=== PATIENT | male | born 1985 | race Caucasian/White ===

== ENCOUNTER 2018-03-23 14:25 | Observation (INO) ==
[2018-03-23] MEDS ORDERED: NORMAL SALINE 500 ML IV ONE (14:34)
--- NOTE | 2018-03-23 15:27 | ERNOTE ---
Medical Problem HPI - Narrative Date of Service: 03/23/18 - Arrived by ambulance having supposedly taken an overdose of lorazepam. Also used a serated knive to superficially cut his chest, neck, and face. Is awake but with garbled speech. - General Chief Complaint: Drug Overdose Time Seen by Provider: 03/23/18 17:15 Source: patient, family Exam Limitations: clinical condition - Immun/Allergies/Home Medications Immunizations: IMMUNIZATION HX Immunizations Up to Date Yes Allergies/Adverse Reactions: Allergies No Known Allergies Allergy (Verified 03/24/18 17:14) Home Medications: HOME MEDICATIONS RX: Benztropine Mesylate 1 mg PO BID 03/23/18 [Last Taken Unknown] RX: LORazepam [Ativan] 0.5 mg PO BID PRN 03/23/18 [Last Taken Unknown] RX: Paliperidone Palmitate [Invega Sustenna] 156 mg IM Q28D 03/23/18 [Last Taken Unknown] - History of Present History Narrative: See above Date (Duration): 03/23/18 Time (Timing): 12:20 Timing: getting worse, intermittent Severity: moderate Modifying Factors - (Improves): Present: other - nothing Modifying Factors - (Worsens): Present: other - nothing Review of Systems - Narrative Narrative: unreliable information from patient - Review of Systems Constitutional: Present: no symptoms reported EYE: Present: no symptoms reported ENT: Present: no symptoms reported Respiratory: Present: no symptoms reported Cardiology: Present: no symptoms reported Gastrointestinal/Abdominal: Present: no symptoms reported Genitourinary: Present: no symptoms reported Musculoskeletal: Present: no symptoms reported Skin: Present: other - multiple superficial lacerations on trunk (chest), neck, face Neurological: Present: anxiety, emotional problems, other - self harm by serrated knife Endocrine: Present: no symptoms reported Hematologic/Lymphatic: Present: no symptoms reported Psych: Present: emotional problems - Discharge recently (5 days ago from [facility] in [facility]) All Other Systems: All systems neg except as marked Medical History (Last Reviewed 03/24/18 @ 17:14 by Vishnu Stapleton RN) Bilateral femoral fractures Onset Date: ~1990 Chlamydia Gangrene Onset Date: ~1990 Kidney calculi Schizo affective schizophrenia Surgical History: Surgical History (Last Reviewed 03/24/18 @ 17:14 by Vishnu Stapleton RN) H/O lithotripsy Family History: Family History (Last Reviewed 03/24/18 @ 17:14 by Vishnu Stapleton RN) Other Family history unknown Social History: Preferred Language Lithuanian Smoking Status Current every day smoker Have you smoked in the past 12 Yes months Do you dip or chew tobacco No Psych History No pertinent hx Alcohol Use heavy Drug Use benzodiazepine,cocaine,marijuana,meth,other No Social History Section defined Physical Exam - Physical Exam General Appearance: Present: moderate distress, other - slurred speech, multiple superficial lacerations on chest, arms, neck. Very agitated and aggressive and uncooperativve. Cursing and threatening to kala everyone in sight. Head Exam: Present: normal inspection, other - few superficial lacerations on face Eye Exam: Normal inspection: bilateral, PERRL: bilateral, EOMI: bilateral Ears, Nose, Throat: Present: normal ENT inspection Neck: Present: nontender, full range of motion, other - few superficial lacerations on neck Respiratory: Present: no respiratory distress, normal breath sounds, no accessory muscle use, chest nontender - except where superficial lacerations are located Cardiovascular/Chest: Present: regular rate, rhythm, no murmur, normal peripheral pulses Peripheral Pulses: N=norm/S=strong/W=weak/B=bound/A=absent: Carotid (R): Normal, Carotid (L): Normal, Radial (R): Normal Gastrointestinal/Abdominal: Present: normal bowel sounds, nontender, nondistended, soft Rectal Exam: Present: deferred Male Genitals Exam: Present: deferred Back Exam: Present: normal inspection, normal range of motion, no CVA tenderness, no vertebral tenderness Extremity Exam: Present: normal inspection, normal except -, normal range of motion, no edema, other - few superficial lacerations on arms Neurological Exam: Present: alert, no motor/sensory deficits, investment executive II-XII nml as tested, disoriented to situation, other - claiming to have take bottle of lorazepam, done cocaine, done meth: can't tell what he took but definitely is intermittently lethargic and took something. Skin Exam: Present: normal color, warm/dry ED Progress - Date and Time Seen: Date and Time: 03/23/18 17:00 Patient had been fairly cooperative and quiet and slowly his restraints were being removed. Sa soon as they were, he bolted out the door in his underwear, ray, and barefoot. Police were called and he was returned to the ER and restrained again. He was very agitated again and received his second dose of Geodon 4 mg which put him to sleep. - Results and Orders Patient's Lab Results:: I have reviewed the patient's lab results. - Vital Signs Patient's Vital Signs:: I have reviewed the patient's vital signs. Vital Signs: Vital Signs 03/23/18 14:47 03/23/18 14:58 Temperature 36.4 C Pulse Rate 93 101 H Respiratory Rate 15 Blood Pressure 129/65 O2 Sat by Pulse Oximetry 97 - EKG EKG: other - no acute changes EKG read: Reviewed by me - Progress/Reassessment Chief Complaint: Drug Overdose Progress:: Improved - Patient was much calmer and sleeping after Geogon second dose of 5 mg. Progress Note-Subjective: 03/23/18 14:25 See note regarding 48 hours hold per Judge Martinez. - Transfer of Care Physician Sign Out: Vanesa Dunham - Dr. Damon to admit to ICU for monitoring until medically cleared. The psych can consult and arrange for committment. Brief History: Issue was discussed with the nursing buildings and grounds supervisor since neither I nor Dr. Damon was familiar with a protocol for this situation. This patient should be evaluated by psych for recommittal. He is on 48 hour hold per Judge Cruz. Expected Disposition: Admit Plan - Plan Plan: Discussed with Dr. Damon who discussed the case with the nursing buildings and grounds supervisor and it was determined that he should go to the intensive care area to be monitored until he is awake and has metabolized whatever he took. He showed us an empty bottle of lorazepam which would have held about 60 mg. Family member at home stated there was a large amount of pill like powder in commode possibly from vomitus. Patient has stated that he used cocaine, heroin, and meth so we really don't know what he took. Acetaminophen and salisylate levels are normal as is alcohol leve. He has been sleeping ever since the second Geogon injection of 5 mg. )2 sats are in the high ninety's. He is known to [facility] where he was an inpatient from 03-13-18 to 03-18-18. He has had all the blood work sent for medical clearance. Departure Clinical Impression: Overdose, Schizo affective schizophrenia - Departure Disposition: Short Term Hospital Inpatient Condition: Stable Date and Time of Evaluation: 03/23/18 15:35 Police (3) returned patient to ER after elopement. Patient awake and extremely argumentative. Refusing to stay. Refusing to lay on bed. Aggressive restraints applied. See documentation. Patient remained agitated. Second dose of geodon 5 mg IM given. Patient is now sleeping comfortably. He is on a 48 hour hold per Air Hose Coupler Martinez. Evaluation Type: Initial (1) Agitation Diagnosis: self harm; overdose Problem: Acute Time Seen by Provider: 03/23/18 14:25 Evaluation of the patient's immediate situation:: 15:35 Patient was returned by police after elopement. Will not sit on bed. Very argumentative and aggressive in handcuffs. Restraints applied. Patient is on a 48 hours hold per Air Hose Coupler Martinez. Restraint - Indication for Use: Behavior that is harmful, Unable to Follow Instruct Patient's reaction to the intervention:: Patient also received Geodon Im 5 mg times 2. Patient is sleeping soundly at this time. Previously cursing and threatening to kala everyone in sight. Behavioral Assessment: Sleeping Continue Restraints: Yes
[2018-03-23] MEDS ORDERED: ZIPRASIDONE MESYLATE 20 MG VIAL IM ONE ×2 (15:33→16:01)
[2018-03-23] MEDS ORDERED: WATER FOR INJECTION,STERILE 20 ML VIAL ONE (15:36)
[2018-03-23] MEDS: NORMAL SALINE 1,000 ML IV PRN ×2 (16:52→19:59)
[2018-03-23 17:53] LABS: Hematocrit 39.7 % (42.0-52.0); Hemoglobin 13.7 gm/dL (13.5-18.0); Mean Cell Volume 83.1 fl (78-100); Mean Corpuscular Hemoglobin 28.7 pg (27-31); Mean Corpuscular Hgb Conc 34.5 g/dl (32-36); Mean Platelet Volume 9.4 fl (8-11.3); Neutrophil # 4.1 K/mm3 (1.3-6.0); Neutrophil % 53.6 % (42-75.0); Platelet Count 262 K/mm3 (150-450); Red Blood Count 4.78 M/mm3 (4.7-6.0); Red Cell Distribution Width 12.5 % (11.5-14.0); White Blood Count 7.7 K/mm3 (4.0-10.5)
[2018-03-23 18:04] LABS: ALT 17 U/L (19-67); AST 10 U/L (0-48); Albumin * 3.8 gm/dl (3.4-5.0); Alkaline Phosphatase * 66 U/L (50-170); Anion Gap 11.9 mmol/L (6.8-13.8); BUN/Creatinine Ratio 12.1 (9.0-21.6); Bilirubin, Total 0.3 mg/dL (0.0-1.1); Blood Urea Nitrogen 13 mg/dL (6-23); Ca. Corrected For Albumin 9.1 mg/dL (8.4-10.2); Calcium * 9.3 mg/dL (7.9-10.9); Chloride 102 mmol/L (97-106); Glucose * 90 mg/dL (70-110); Potassium 3.9 mmol/L (3.4-4.6); Salicylate Less than 2.8 mg/dL (2.8-20.0); Sodium 139 mmol/L (132-142); Total Protein 7.4 gm/dL (6.2-8.2)
[2018-03-23 18:50] LABS: Urine Appearance Clear (CLEAR); Urine Bacteria None Seen; Urine Bilirubin Negative (NEGATIVE); Urine Blood Negative /ul (NEGATIVE); Urine Color Yellow; Urine Ketone Negative (NEGATIVE); Urine Nitrite Negative (NEGATIVE); Urine Protein Negative (NEGATIVE); Urine RBC None Seen /hpf (0-5); Urine Urobilinogen Normal (NORMAL); Urine WBC None Seen /hpf (0-5)
[2018-03-23 18:52] LABS: Cocaine Ur Negative (NEGATIVE); Urine Barbiturate Negative (NEGATIVE); Urine Opiates Negative (NEGATIVE); Urine PCP Negative (NEGATIVE)
[2018-03-23 18:57] LABS: Urine Benzodiazepines Positive (NEGATIVE); Urine THC Positive (NEGATIVE)
[2018-03-23] MEDS ORDERED: ACETAMINOPHEN 500 MG TABLET PO PRN (20:12)
[2018-03-23] MEDS ORDERED: PALIPERIDONE PALMITATE 156 MG IM SCH (20:15)
[2018-03-23] MEDS ORDERED: BACITRACIN ZINC 30 APPL TUBE TP ONE (20:36)
[2018-03-23] MEDS ORDERED: ZIPRASIDONE MESYLATE 20 MG VIAL IM PRN (20:49)
[2018-03-23] MEDS ORDERED: LORazepam 2 MG/ML DISP.SYRIN IV PRN (20:53)
[2018-03-23] MEDS ORDERED: LORazepam 0.5 MG TABLET PO SCH (21:00)
[2018-03-23] MEDS ORDERED: BENZTROPINE MESYLATE 0.5 MG TABLET PO SCH (21:00)
--- NOTE | 2018-03-23 21:26 | HP ---
Chief Complaint - Chief Complaint Date of Service: 03/23/18 Time of Service: 08:00 Chief Complaint: drug overdose, suicide attempt, polysubstance abuse History of Present Illness: Deshawn Reyes is a 32 yo wh male with a long standing history of schizophrenia. Today he took an overdose of his lorazepam .5mg (quantity unknown). He was brought to the hospital and required restraining in patrick. He received geodon 5mg IM in the ER. On arrival in [facility] he remains verbally abusive and threatening to spit on the nurses. Police were called and assisted in loosening his patrick on the L. wrist. He has scratch razer swartz on his neck and both wrists but deeper on the L. volar wrist. The wrist was dressed with neosporin and gauze and he was allowed to roll onto his R. side. He states he can not sleep on his back. socks were placed on his feet. Has had a tissue loss on the back of his R. thigh and R. foot. Lab: Urine drug screen pos for amphetamine, marijuana, benzos. Police report he uses methamphetamine. Urine for meth was ordered for documentation. He has a court ordered hold for 48 hrs awaiting a psych hospital admission. In my opinion he is medically stable and as detoxed as much as he usually is. He is conversant although verbally abusive at times. His speech is no longer slurred. His neurological assessment shows no motor or sensory deficits and no seizure activity has been seen. IV fluids have been stopped and the IV saline locked. He is a danger to himself and perhaps others. If he becomes verbally or physically abusive to staff he is stable enough to go to shelter. Medical History (Last Updated 03/23/18 @ 14:44 by Aysha Cotton RN) Bilateral femoral fractures Onset Date: ~1990 Chlamydia Gangrene Onset Date: ~1990 Kidney calculi Schizo affective schizophrenia Surgical History: Surgical History (Last Reviewed 03/12/18 @ 22:15 by Víctor Craig DO) H/O lithotripsy Family History: Family History (Last Updated 03/23/18 @ 17:26 by Alissa Stapleton RN) Other Family history unknown Social History: Preferred Language Greenlandic Smoking Status Current every day smoker Have you smoked in the past 12 Yes months Do you dip or chew tobacco No Psych History No pertinent hx Alcohol Use heavy Drug Use benzodiazepine,cocaine,marijuana,meth,other No Social History Section defined Review Of Systems (GEN) - Review of Systems EENTM: Present: No Symptoms Reported Respiratory: Present: No Symptoms Reported Cardiac: Present: No Symptoms Reported Abdominal: Present: No Symptoms Reported Genitourinary: Present: No Symptoms Reported Musculoskeletal: Present: No Symptoms Reported Neurological: Present: No Symptoms Reported Skin: Present: Other - Multiple razor excoriation swartz on the neck, both wrists, and forearms. Endocrine: Present: No Symptoms Reported Misc: All systems neg except as marked Immunizations: IMMUNIZATION HX Immunizations Up to Date Yes Allergies/Adverse Reactions: Allergies Allergy/AdvReac Type Severity Reaction Status Date / Time No Known Allergies Allergy Verified 03/12/18 17:04 Home Medications: HOME MEDICATIONS Benztropine Mesylate 1 mg PO BID 03/23/18 [Last Taken Unknown] LORazepam [Ativan] 0.5 mg PO BID PRN 03/23/18 [Last Taken Unknown] Paliperidone Palmitate [Invega Sustenna] 156 mg IM Q28D 03/23/18 [Last Taken Unknown] Exam - Exam Vital Signs: Vital Signs - Last Taken Temp 36.2 C 03/23/18 16:43 Pulse 100 03/23/18 20:43 Resp 22 H 03/23/18 20:43 BP 119/72 03/23/18 19:30 Pulse Ox 98 03/23/18 20:43 Constitutional: Present: Alert, Oriented x3, Cooperative, Well developed, Well nourished, Mild distress Eye Exam: bilateral eye: normal inspection, PERRL, EOMI Neck: Present: non-tender, supple, normal inspection, trachea midline Back Exam: Present: normal inspection, no CVA tenderness, no vertebral tenderness Breasts: Present: Nontender Respiratory: Present: chest non-tender, lungs clear Cardiovascular/Chest: Present: normal peripheral pulses, regular rate, rhythm Peripheral Pulses: carotid (R): 2+, carotid (L): 2+, radial (R): 2+, radial (L): 2+ Abdomen: Present: Normal bowel sounds, soft, nontender, nondistended, no rebound tenderness, no hepatospenomegaly /Rectal: Present: Exam deferred Extremity: Present: normal range of motion Skin Exam: Present: normal color, warm/dry, no cyanosis Lymphatic: Present: no adenopathy Neurologic: Present: onion tier II-XII nml as tested, no motor/sensory deficits, alert, oriented x 3, other - agitated, verbally abusive and threatening physical abuse.. Absent: normal mood/affect Appearance: Present: appropriate appearance Eye contact: Present: cooperative, good eye contact, normal speech, increased r ate of speech, belligerent, uncooperative Thoughts: Present: no apparent hallucination - at this time but he has a hx. of both visual and auditory. Diagnostic Studies: Abnormal Lab Results 03/23/18 03/23/18 03/23/18 Range/Units 14:32 14:32 18:39 Hct 39.7 L (42.0-52.0) % Eosinophils % 3.3 H (0.0-3.0) % ALT 17 L (19-67) U/L Salicylates Less than 2.8 L (2.8-20.0) mg/dL Acetaminophen Less than 0.2 L (10.0-30.0) mcg/mL Urine Amphetamine Positive H (NEGATIVE) U Benzodiazepines Scrn Positive H (NEGATIVE) Urine Marijuana (THC) Positive H (NEGATIVE) Laboratory Results WBC 7.7 K/mm3 (4.0-10.5) 03/23/18 14:32 RBC 4.78 M/mm3 (4.7-6.0) 03/23/18 14:32 Hgb 13.7 gm/dL (13.5-18.0) 03/23/18 14:32 Hct 39.7 % (42.0-52.0) L 03/23/18 14:32 MCV 83.1 fl (78-100) 03/23/18 14:32 MCH 28.7 pg (27-31) 03/23/18 14:32 MCHC 34.5 g/dl (32-36) 03/23/18 14:32 RDW 12.5 % (11.5-14.0) 03/23/18 14:32 Plt Count 262 K/mm3 (150-450) 03/23/18 14:32 MPV 9.4 fl (8-11.3) 03/23/18 14:32 Immature Gran % (Auto) 0.10 % (0.001-0.429) 03/23/18 14:32 Immature Gran # (Auto) 0.01 K/mm3 (0.000-0.0310) 03/23/18 14:32 Neutrophils % 53.6 % (42-75.0) 03/23/18 14:32 Lymphocytes % 34.7 % (20-51) 03/23/18 14:32 Monocytes % 7.8 % (0.0-9) 03/23/18 14:32 Eosinophils % 3.3 % (0.0-3.0) H 03/23/18 14:32 Basophils % 0.5 % (0.0-1.0) 03/23/18 14:32 Nucleated RBC % 0.0 k/mm3 (0-1) 03/23/18 14:32 Neutrophils # 4.1 K/mm3 (1.3-6.0) 03/23/18 14:32 Lymphocytes # 2.66 k/mm3 (1.5-3.5) 03/23/18 14:32 Monocytes # 0.6 k/mm3 (0.0-1.0) 03/23/18 14:32 Eosinophils # 0.3 k/mm3 (0.0-0.7) 03/23/18 14:32 Absolute Basophils 0.0 k/mm3 (0.0-0.1) 03/23/18 14:32 Sodium 139 mmol/L (132-142) 03/23/18 14:32 Plasma Sodium 139 mmol/L (130-142) 03/23/18 14:32 Potassium 3.9 mmol/L (3.4-4.6) 03/23/18 14:32 Chloride 102 mmol/L (97-106) 03/23/18 14:32 Carbon Dioxide 29.0 mmol/L (24-32.6) 03/23/18 14:32 Anion Gap 11.9 mmol/L (6.8-13.8) 03/23/18 14:32 BUN 13 mg/dL (6-23) 03/23/18 14:32 Creatinine 1.07 mg/dL (0.4-1.4) 03/23/18 14:32 Est GFR (Non-Af Amer) 86 mL/min (60-130) D 03/23/18 14:32 BUN/Creatinine Ratio 12.1 (9.0-21.6) 03/23/18 14:32 Random Glucose 90 mg/dL (70-110) 03/23/18 14:32 Calcium 9.3 mg/dL (7.9-10.9) 03/23/18 14:32 Calcium Adj for Albumin 9.1 mg/dL (8.4-10.2) 03/23/18 14:32 Total Bilirubin 0.3 mg/dL (0.0-1.1) 03/23/18 14:32 AST 10 U/L (0-48) 03/23/18 14:32 ALT 17 U/L (19-67) L 03/23/18 14:32 Alkaline Phosphatase 66 U/L (50-170) 03/23/18 14:32 Total Protein 7.4 gm/dL (6.2-8.2) 03/23/18 14:32 Albumin 3.8 gm/dl (3.4-5.0) 03/23/18 14:32 Urine Color Yellow 03/23/18 18:40 Urine Appearance Clear (CLEAR) 03/23/18 18:40 Urine pH 6.0 pH (5.0-7.0) 03/23/18 18:40 Ur Specific [place] 1.020 SP.GR. (1.005-1.030) 03/23/18 18:40 Urine Protein Negative mg/dL (NEGATIVE) 03/23/18 18:40 Urine Glucose (UA) Negative mg/dL (NEGATIVE) 03/23/18 18:40 Urine Ketones Negative mg/dL (NEGATIVE) 03/23/18 18:40 Urine Blood Negative /ul (NEGATIVE) 03/23/18 18:40 Urine Nitrate Negative (NEGATIVE) 03/23/18 18:40 Urine Bilirubin Negative mg/dl (NEGATIVE) 03/23/18 18:40 Urine Urobilinogen Normal EU/dl (NORMAL) 03/23/18 18:40 Ur Leukocyte Esterase Negative /ul (NEGATIVE) 03/23/18 18:40 Urine RBC None seen /hpf (0-5) 03/23/18 18:40 Urine WBC None seen /hpf (0-5) 03/23/18 18:40 Ur Epithelial Cells None seen /hpf (0-5) 03/23/18 18:40 Urine Bacteria None seen (NONE) 03/23/18 18:40 Urine Culture Comments No culture indicated 03/23/18 18:40 Salicylates Less than 2.8 mg/dL (2.8-20.0) L 03/23/18 14:32 Urine Opiates Screen Negative (NEGATIVE) 03/23/18 18:39 Acetaminophen Less than 0.2 mcg/mL (10.0-30.0) L 03/23/18 14:32 Barbiturate Screen Negative (NEGATIVE) 03/23/18 18:39 Ur Phencyclidine Scrn Negative (NEGATIVE) 03/23/18 18:39 Urine Amphetamine Positive (NEGATIVE) H 03/23/18 18:39 U Benzodiazepines Scrn Positive (NEGATIVE) H 03/23/18 18:39 Urine Cocaine Screen Negative (NEGATIVE) 03/23/18 18:39 Urine Marijuana (THC) Positive (NEGATIVE) H 03/23/18 18:39 Ethyl Alcohol Less than 3.0 mg/dL (0.0-10.0) 03/23/18 14:32
[2018-03-24 00:13] VITALS: BP 104/39
[2018-03-24] MEDS ORDERED: LORazepam 0.5 MG TABLET PO PRN (08:00)
--- NOTE | 2018-03-24 15:00 | DS ---
Description of Stay: Deshawn Reyes is a 32 yo wh. male who presented to ER after reportedly overdosing on Lorazepam. He has a long standing history of schizoaffective disorder and has had paranoia and halucinations (auditory and visual) in the past. He also uses street drugs. He has been in a [facility] in [place] and has been incarcerated several times. He was verbally abusive and combative in the ER and had to be placed in leather restraints. He had used a razor to scratch his neck and wrists and the L. wrist is the deepest. Because he ws considered medically unstable and a danger to himself and perhaps others he ws admitted on a [address]. On arrival to the [facility] he continued to be verbally abusive and threatening staff that he was going to kill them all. He complained that the L wrist restraint was on tto tight and hurting the lacerated areas. Nursing loosened the strap and dressed it with tripple ABX moisés and dressed with gauze and gauze wrap. He was then allowed to roll to his R. side and the patrick were anchored to the bed frame. The ER DrRichie came over at 1130pm to redo his face to face to renew the leather restraint per policy at which time the pt. said he needed to go to the BR. He was allowed to do so but then would not get back into bed and started threatening staff again. On my exam last night I did not considerr him to be medically unstable and stated so in the H&P and that if he became abusive again I would have him arrested and taken to nursing home which is exactly what happened. He was discharged into the custody of the Police. Procedures Performed: see notes below List Procedures: Leather restraints Results and Findings: Lab Pending Results 03/23/18 14:32: WBC 7.7, RBC 4.78, Hgb 13.7, Hct 39.7 L, MCV 83.1, MCH 28.7, MCHC 34.5, RDW 12.5, Plt Count 262, MPV 9.4, Immature Gran % (Auto) 0.10, Immature Gran # (Auto) 0.01, Neutrophils % 53.6, Lymphocytes % 34.7, Monocytes % 7.8, Eosinophils % 3.3 H, Basophils % 0.5, Nucleated RBC % 0.0, Neutrophils # 4.1, Lymphocytes # 2.66, Monocytes # 0.6, Eosinophils # 0.3, Absolute Basophils 0.0 03/23/18 14:32: Sodium 139, Plasma Sodium 139, Potassium 3.9, Chloride 102, Carbon Dioxide 29.0, Anion Gap 11.9, BUN 13, Creatinine 1.07, Est GFR (Non-Af Amer) 86 D, BUN/Creatinine Ratio 12.1, Random Glucose 90, Calcium 9.3, Calcium Adj for Albumin 9.1, Total Bilirubin 0.3, AST 10, ALT 17 L, Alkaline Phosphatase 66, Total Protein 7.4, Albumin 3.8, Salicylates Less than 2.8 L, Acetaminophen Less than 0.2 L, Ethyl Alcohol Less than 3.0 03/23/18 18:39: Urine Opiates Screen Negative, Barbiturate Screen Negative, Ur Phencyclidine Scrn Negative, Urine Amphetamine Positive H, U Benzodiazepines Scrn Positive H, Urine Cocaine Screen Negative, Urine Marijuana (THC) Positive H 03/23/18 18:40: Urine Color Yellow, Urine Appearance Clear, Urine pH 6.0, Ur Specific [place] 1.020, Urine Protein Negative, Urine Glucose (UA) Negative, Urine Ketones Negative, Urine Blood Negative, Urine Nitrate Negative, Urine Bilirubin Negative, Urine Urobilinogen Normal, Ur Leukocyte Esterase Negative, Urine RBC None seen, Urine WBC None seen, Ur Epithelial Cells None seen, Urine Bacteria None seen, Urine Culture Comments No culture indicated Discharge Location: Intermediate Disposition: Against medical advice Condition: Stable Discharge Activity: Activity as tolerated Discharge Diet: General/regular food Complete Home Medications List: Complete Home Medication List: Benztropine Mesylate 1 mg PO BID 03/23/18 LORazepam [Ativan] 0.5 mg PO BID PRN 03/23/18 Paliperidone Palmitate [Invega Sustenna] 156 mg IM Q28D 03/23/18
== END 2018-03-24 01:00 | disposition left against medical advice (07) ==
LOC: ER 14:25 → SCU 19:33 → INTOOBSV 19:33 → SCU 20:05
PROVIDERS: ADMIT Family Medicine; ATTEND Family Medicine
CPT/HCPCS: 36415; 80053; 80307; 80320; 80324; 80329; 81001; 85025; 93005; 94760; 96360; 96372; 99285; G0378; G0479; G0480; G0481